=== PATIENT | male | born 1960 | race Caucasian/White ===

== ENCOUNTER 2021-12-02 14:25 | Inpatient (IN) | payer BC ==
[~2021-12-02 14:25] MED LIST: Heparin 10,000 UNITS/ 10 ML VIAL ONE; Iopamidol 370 76% 100 ML VIAL ONE
[2021-12-02] MEDS ORDERED: Nitroglycerin 100MG/250ML BOT 250 ML ONE (14:47)
[2021-12-02] MEDS ORDERED: Adenosine 6 MG/2 ML VIAL ONE (14:47)
[2021-12-02] MEDS ORDERED: Verapamil 5 MG/2 ML VIAL ONE (14:47)
[2021-12-02] MEDS ORDERED: Nitroglycerin 2% Ointment 1 INCH/1 GM Packet ONE (14:47)
[2021-12-02] MEDS ORDERED: Atropine Sulfate 1 mg/10 ml Syringe ONE (14:48)
[2021-12-02] MEDS ORDERED: Ondansetron PF 4 MG/2 ML Vial ONE (15:28)
[2021-12-02] MEDS ORDERED: DOPamine 400 MG/D5W 250 ML 250 ML ONE (15:28)
[2021-12-02] MEDS ORDERED: Heparin 10,000 UNITS/ 10 ML VIAL ONE (15:28)
[2021-12-02 15:33] LABS: #Eosinphils 0.4 thou/uL (0.0-0.7); #Lymphocytes 1.6 thou/uL (1.20-3.40); #Monocytes 0.8 thou/uL (0.11-0.59); #Neutrophils 8.2 thou/uL (1.40-6.50); %Basophils 0.2 % (0.0-1.0); %Eosinophils 3.7 % (0.0-10.0); %Lymphocytes 14.6 % (21.0-51.0); %Monocytes 6.8 % (0.0-10.0); %Neutrophils 74.7 % (42.0-75.0); Hemoglobin 15.7 g/dL (14.0-18.0); Mean Corpuscular HGB CONC 33.9 g/dL (32.0-36.0); Mean Corpuscular Hemoglobin 30.6 pg (27.0-31.0); Mean Corpuscular Volume 90.5 fL (78.0-98.0); Mean Platelet Volume 6.5 fL (7.4-10.4); Platelet Count 212 thou/uL (130-400); RBC Distribution Width 12.3 % (11.5-14.5); Red Blood Cell (RBC) Count 5.12 mill/uL (4.70-6.10)
[2021-12-02] MEDS ORDERED: Fentanyl 100 MCG/2 ML VIAL ONE (15:44)
[2021-12-02] MEDS ORDERED: Midazolam HCl 2 mg/2 ml Vial ONE (15:44)
[2021-12-02] MEDS ORDERED: Clopidogrel Bisulfate 300 MG TAB ONE (15:46)
[2021-12-02 15:55] LABS: INR-International Normal Ratio 1.2; Prothrombin Time 15.1 sec (12.0-14.7)
[2021-12-02 15:56] LABS: PTT 74.2 sec (22.9-36.1)
[2021-12-02 15:58] LABS: Anion Gap 14 mmol/L (10-20); BUN (Urea Nitrogen) 17 mg/dL (8.4-25.7); Calc. Creatinine Clearance 0 mL/min (70-130); Calcium 8.8 mg/dL (7.8-10.44); Carbon Dioxide 19 mmol/L (23-31); Chloride 105 mmol/L (98-107); Glucose 178 mg/dL (80-115); Potassium 3.4 mmol/L (3.5-5.1); Sodium 135 mmol/L (136-145)
[2021-12-02] MEDS ORDERED: Sodium Chloride 0.9% 1,000 ML IV SCH (16:00)
[2021-12-02] MEDS ORDERED: Zolpidem Tartrate 5 MG TAB PO PRN (16:00)
[2021-12-02] MEDS ORDERED: Acetaminophen/Codeine 30-300mg Tablet PO PRN (16:00)
[2021-12-02] MEDS ORDERED: Milk Of Magnesia 30 ML UDCUP PO PRN (16:00)
[2021-12-02] MEDS: Atorvastatin Calcium 40 MG TAB PO SCH (20:07)
[2021-12-02 23:07] LABS: Troponin I 68.921 ng/mL (< 0.028)
[2021-12-03 03:40] LABS: #Eosinphils 0.1 thou/uL (0.0-0.7); #Monocytes 0.5 thou/uL (0.11-0.59); #Neutrophils 6.8 thou/uL (1.40-6.50); %Eosinophils 1.4 % (0.0-10.0); %Lymphocytes 11.4 % (21.0-51.0); %Monocytes 6.3 % (0.0-10.0); %Neutrophils 80.8 % (42.0-75.0); Hemoglobin 15.1 g/dL (14.0-18.0); Mean Corpuscular HGB CONC 33.6 g/dL (32.0-36.0); Mean Corpuscular Hemoglobin 30.2 pg (27.0-31.0); Mean Corpuscular Volume 89.9 fL (78.0-98.0); Mean Platelet Volume 6.4 fL (7.4-10.4); Platelet Count 181 thou/uL (130-400); RBC Distribution Width 12.4 % (11.5-14.5); Red Blood Cell (RBC) Count 4.98 mill/uL (4.70-6.10); White Blood Cell (WBC) Count 8.4 thou/uL (4.8-10.8)
[2021-12-03 04:05] LABS: ALT (SGPT) 58 U/L (8-55); AST (SGOT) 186 U/L (5-34); Albumin 3.7 g/dL (3.4-4.8); Alkaline Phosphatase 46 U/L (40-110); Anion Gap 12 mmol/L (10-20); BUN (Urea Nitrogen) 14 mg/dL (8.4-25.7); Calc. Creatinine Clearance 168 mL/min (70-130); Carbon Dioxide 23 mmol/L (23-31); Chloride 104 mmol/L (98-107); Globulin 2.5 g/dL (2.4-3.5); Glucose 113 mg/dL (80-115); Potassium 4.2 mmol/L (3.5-5.1); Protein, Total 6.2 g/dL (5.8-8.1); Sodium 135 mmol/L (136-145)
[2021-12-03 04:05] LABS: SARS-CoV-2 NAA Rapid Test Not Detected (NotDetected)
[2021-12-03 04:28] VITALS: BMI 39.4
[2021-12-03] MEDS: Aspirin Chewable 81 MG TAB PO SCH (08:09)
[2021-12-03] MEDS: Clopidogrel Bisulfate 75 MG TAB PO SCH (08:09)
[2021-12-03] MEDS: Atorvastatin Calcium 40 MG TAB PO SCH (20:26)
[2021-12-04] MEDS: Clopidogrel Bisulfate 75 MG TAB PO SCH (09:33)
[2021-12-04] MEDS: Aspirin Chewable 81 MG TAB PO SCH (09:33)
[2021-12-04] MEDS: Atorvastatin Calcium 40 MG TAB PO SCH (20:21)
[2021-12-05] MEDS: Clopidogrel Bisulfate 75 MG TAB PO SCH (09:59)
[2021-12-05] MEDS: Aspirin Chewable 81 MG TAB PO SCH (09:59)
[2021-12-05 17:08] LABS: Anion Gap 11 mmol/L (10-20); BUN (Urea Nitrogen) 14 mg/dL (8.4-25.7); Calc. Creatinine Clearance 133 mL/min (70-130); Calcium 9.5 mg/dL (7.8-10.44); Carbon Dioxide 31 mmol/L (23-31); Chloride 101 mmol/L (98-107); Glucose 92 mg/dL (80-115); Potassium 3.6 mmol/L (3.5-5.1); Sodium 139 mmol/L (136-145)
[2021-12-05] MEDS: Atorvastatin Calcium 40 MG TAB PO SCH (20:28)
[2021-12-06] MEDS: Clopidogrel Bisulfate 75 MG TAB PO SCH (08:54)
[2021-12-06] MEDS: Aspirin Chewable 81 MG TAB PO SCH (08:54)
[2021-12-06 08:58] VITALS: TEMP 98.4
[2021-12-06 09:13] VITALS: BP 140/87
[2021-12-07] MEDS ORDERED: Losartan 25 MG TAB PO SCH (09:00)
== END 2021-12-06 10:45 | disposition home or self-care (01) | DRG 247 ==
LOC: ERS 14:25 → CCL 14:50 → CCU 15:23 → 2NO 12-03 14:08
PROVIDERS: ADMIT Internal Medicine Cardiovascular Disease; ATTEND Internal Medicine Cardiovascular Disease
PROC: 4A023N7 Measurement of Cardiac Sampling and Pressure, Left Heart, Percutaneous Approach (ICD-10-PCS; principal; 2021-12-02)
PROC: 027034Z Dilation of Coronary Artery, One Artery with Drug-eluting Intraluminal Device, Percutaneous Approach (ICD-10-PCS; 2021-12-02)
PROC: B2111ZZ Fluoroscopy of Multiple Coronary Arteries using Low Osmolar Contrast (ICD-10-PCS; 2021-12-02)
PROC: B2151ZZ Fluoroscopy of Left Heart using Low Osmolar Contrast (ICD-10-PCS; 2021-12-02)
PROC: B240ZZ3 Ultrasonography of Single Coronary Artery, Intravascular (ICD-10-PCS; 2021-12-02)
DX: I21.19 ST elevation (STEMI) myocardial infarction involving other coronary artery of inferior wall (principal); Z20.822 Contact with and (suspected) exposure to COVID-19; I10 Essential (primary) hypertension; E78.5 Hyperlipidemia, unspecified; I25.5 Ischemic cardiomyopathy; R00.1 Bradycardia, unspecified; L81.8 Other specified disorders of pigmentation; Z98.890 Other specified postprocedural states; Z79.899 Other long term (current) drug therapy
CPT/HCPCS: 36415; 80048; 80053; 84484; 85025; 85347; 85610; 85730; 92941; 93005; 93010; 93306; 93798; 93880; 94660; 96374; 96376; 97139; C1751; C1753; C1769; C1874; C9606; J0153; J0461; J1265; J1644; J2250; J2405; J3010; J7050; Q9967; U0002